=== PATIENT | female | born 1980 | race Caucasian/White ===

== ENCOUNTER 2024-04-17 07:27 | Day surgery (SDC) | payer OTHER ==
[2024-04-17 07:42] LABS: HCG URINE TEST NEGATIVE (NEGATIVE)
[2024-04-17] MEDS: Lactated Ringers 1,000 ML IV SCH (07:48)
[2024-04-17] MEDS: CEFAZOLIN 2 GM/100 ML NaCl 2 GM/100 ML IVPB IV SCH (07:48)
[2024-04-17 07:56] VITALS: BP 125/84; PULSE 95; RESP 18; TEMP 97.8; O2SAT 97
== END 2024-04-17 09:24 | disposition home or self-care (01) ==
LOC: SDC 07:27
PROVIDERS: ATTEND Obstetrics & Gynecology
DX: Z53.8 Procedure and treatment not carried out for other reasons (principal)
CPT/HCPCS: 81025; J0690

== ENCOUNTER 2024-05-08 06:24 | Day surgery (SDC) | payer OTHER ==
[2024-05-08] MEDS: TYLENOL EXTRA STRENGTH 500 MG PO ONE (06:42)
[2024-05-08] MEDS: NEURONTIN PO ONE (06:43)
[2024-05-08] MEDS: Decadron 4 MG PO ONE (06:44)
[2024-05-08] MEDS: celeBREX 100 MG PO ONE (06:44)
[2024-05-08] MEDS: CEFAZOLIN 2 GM/100 ML NaCl 2 GM/100 ML IVPB IV SCH (06:45)
[2024-05-08] MEDS: Lactated Ringers 1,000 ML IV SCH (06:45)
[2024-05-08 06:50] LABS: HCG URINE TEST NEGATIVE (NEGATIVE)
[2024-05-08 07:03] VITALS: RESP 16
[2024-05-08] MEDS ORDERED: Sodium Chloride 0.9% 1000 ML 1,000 ML ONE (08:41)
[2024-05-08] MEDS ORDERED: propofoL IV ONE (08:44)
[2024-05-08] MEDS ORDERED: Versed 2 MG/2 ML Injection ONE (08:44)
[2024-05-08] MEDS ORDERED: SUBLIMAZE 100 MCG/2 ML ONE (08:44)
[2024-05-08] MEDS ORDERED: TORAdol 30 mg Injection ONE (09:22)
[2024-05-08 10:17] VITALS: BP 122/83; PULSE 82; TEMP 96.7; O2SAT 96
--- NOTE | 2024-05-10 09:50 | OP ---
SURGERY DATE/TIME: 05/08/2024 [id number] PREOPERATIVE DIAGNOSIS: Abnormal uterine bleeding and retained intrauterine device. POSTOPERATIVE DIAGNOSIS: Abnormal uterine bleeding and retained intrauterine device. PROCEDURE: Hysteroscopy, dilatation and curettage, with NovaSure ablation and removal of intrauterine device Mirena. SURGEON: Elia Forde DO BINMAN: Patria Acevedo ANESTHESIA: General. ESTIMATED BLOOD LOSS: Minimal. COMPLICATIONS: None. INDICATIONS: The risks, benefits, indications, and alternatives of the procedure were reviewed with the patient prior to the procedure. Patient understood the risks of infection, bleeding, bowel injury, bladder injury, ureteral perforation, pelvic infection, and thromboembolic disorder associated with this surgery and desires to have this surgery as a possible means to alleviate her current medical condition. DESCRIPTION OF PROCEDURE AND FINDINGS: At this point, the patient was taken to the operating room, given general sedation, placed in a dorsal lithotomy position, prepped and draped in the usual sterile fashion. A weighed speculum was then placed in the patient's vagina and the anterior lip of the cervix was grasped with a single-tooth tenaculum. Ring forceps were used and the IUD string was noted and the IUD was removed without complication. From this point, dilators were used and advanced through the endocervical canal as a means to dilate the cervix and a 5 mm hysteroscope was then placed in through the endocervical region towards the fundal region and there were no gross abnormalities that were noted within the uterine cavity. From this point, the hysteroscope was removed and a curette was then placed into the fundus of the uterus and curettage was performed in all quadrants of the uterus, retrieving a [id number] amount of tissue. At this point, hemostasis was obtained and the NovaSure instrument was then taken through the endocervical region towards the fundal region and retracted approximately 1 cm with a length of 6.5 cm and a width of 4.5 cm and the instrument was engaged and the machine was turned on for an ablative time of 1 minute and 5 seconds. After complete ablation, the instrument was disengaged and removed from the uterine cavity without complication. From this point, all instruments were removed from the patient's vaginal region. The patient was then taken out of the dorsal lithotomy position, was taken out of anesthesia, was then taken to the recovery room in stable condition. All instruments and laps were accounted for x2.
== END 2024-05-08 10:32 | disposition home or self-care (01) ==
LOC: SDC 06:24
PROVIDERS: ATTEND Obstetrics & Gynecology
DX: N93.9 Abnormal uterine and vaginal bleeding, unspecified (principal); Z30.432 Encounter for removal of intrauterine contraceptive device
CPT/HCPCS: 58563; 81025; J0690; J1885; J2250; J2704; J3010; A9270-GY